=== PATIENT | female | born 1935 | race Asian ===

== ENCOUNTER 2020-10-31 08:28 | Day surgery (SDC) | payer OTHER ==
[~2020-10-31] VITALS: Ht 154.9 cm; Wt 38.1 kg
--- NOTE | 2020-10-31 09:09 | NUR ---
RD RECOMMENDATIONS: 1. JEVITY 1.2 4 CANS/DAY; 1 CAN IN MORNING, 1.5 CANS IN AFTERNOON AND 1.5 CANS IN EVENING -THIS WILL PROVIDE 944 ML OF VOLUME/DAY, 1140 KCAL/DAY AND 52 GM OF PROTEIN/DAY, MEETING ADEQUATE NUTRIENT NEEDS 2. FREE WATER FLUSH 100 ML BEFORE AND AFTER EVERY FEEDING -TOTAL OF 600 ML OF FREE WATER FLUSH PER DAY VIVIAN COX, RD
[2020-10-31] MEDS ORDERED: fentaNYL citrate 0.05 MG/ML VIAL ONE (11:08)
[2020-10-31] MEDS ORDERED: MIDAZOLAM 5 MG/5 ML VIAL ONE (11:08)
[2020-10-31] MEDS ORDERED: fentaNYL citrate 0.05 MG/ML VIAL IVP ONE (13:55)
[2020-10-31] MEDS ORDERED: MIDAZOLAM 2 MG/2 ML VIAL IVP ONE (13:55)
== END 2020-10-31 14:05 | disposition home or self-care (01) ==
LOC: MDS 08:28 → MFCC 08:30 → MDS 14:05
PROVIDERS: ATTEND Internal Medicine Gastroenterology
DX: R13.10 Dysphagia, unspecified (principal); K22.2 Esophageal obstruction; R62.7 Adult failure to thrive; Z79.899 Other long term (current) drug therapy
CPT/HCPCS: 43246; 43248; J0690; J2250; J3010; J7030; J7060

== ENCOUNTER 2020-11-12 11:18 | Emergency (ER) | payer OTHER ==
[~2020-11-12] VITALS: Ht 152.4 cm; Wt 44.5 kg
[2020-11-12 11:22] VITALS: BP 150/54
[2020-11-12] MEDS ORDERED: NACL 0.9% 1,000 ML IV SCH (11:25)
--- NOTE | 2020-11-12 11:30 | NUR ---
85 Y/O FEMALE BIBA FROM [facility] C/O ALOC, [facility]. BASELINE IS AT [facility] 14. ON NASAL CANNULA 2 LPM. O2 99 %. SACRAL REDNESS NOTED. LUNG SOUNDS CLEAR. WITHDRAWS TO PAIN. MEDHX: GTUBE, DEMENTIA, CVA, HTN, GERD, PSORIASIS NKA
--- NOTE | 2020-11-12 11:35 | NUR ---
UA, blood cultures and sample walked to lab and handed to CPT
--- NOTE | 2020-11-12 11:35 | NUR ---
EMT at bedside for EKG
--- NOTE | 2020-11-12 11:37 | NUR ---
PER ERMD 12 LEAD WAS DONE ON PT AND CAME BACK NSR AT 85 HR.
--- NOTE | 2020-11-12 11:45 | NUR ---
RAD at bedside
--- NOTE | 2020-11-12 11:49 | NUR ---
RT AT BEDSIDE
[2020-11-12] MEDS ORDERED: LISI-487 GT (12:12)
[2020-11-12] MEDS ORDERED: HYDR-1098 PO (12:12)
[2020-11-12] MEDS ORDERED: METO50TE2 GT (12:12)
[2020-11-12] MEDS ORDERED: ACET-2619 GT (12:12)
[2020-11-12] MEDS ORDERED: AMLO5TAB GT (12:12)
[2020-11-12] MEDS ORDERED: CLOT1CRE90 TP (12:12)
[2020-11-12] MEDS ORDERED: NUTR-813 PO (12:12)
[2020-11-12] MEDS ORDERED: CIPR500T4 GT (12:12)
[2020-11-12] MEDS ORDERED: ATI.5 GT (12:12)
[2020-11-12] MEDS ORDERED: PANT40GR GT (12:12)
[2020-11-12] MEDS ORDERED: ASPI-1749 GT (12:12)
[2020-11-12 12:15] LABS: BASOPHILS % (AUTO) 0.3 % (0.0-2.0); EOSINOPHILS # (AUTO) 0.2 K/uL (0-0.4); EOSINOPHILS % (AUTO) 1.9 % (0.0-4.0); HEMATOCRIT 35.7 % (36-48); HEMOGLOBIN 11.7 g/dL (12.0-16.0); LYMPHOCYTES # (AUTO) 1.6 K/uL (2.5-16.5); LYMPHOCYTES % (AUTO) 17.7 % (20.5-51.1); MEAN CORPUSCULAR HEMOGLOBIN 29 pg (27-31); MEAN CORPUSCULAR HGB CONC 33 g/dL (33-37); MEAN CORPUSCULAR VOLUME 87.2 fL (80-94); MONOCYTES # (AUTO) 0.8 K/uL (0.8-1.0); MONOCYTES % (AUTO) 8.3 % (1.7-9.3); NEUTROPHILS # (AUTO) 6.5 K/uL (1.8-7.7); NEUTROPHILS % (AUTO) 71.8 % (42.2-75.2); PLATELET COUNT (AUTO) 282 K/uL (140-450); RED BLOOD CELL COUNT(AUTO) 4.09 MIL/uL (4.20-5.40); RED CELL DISTRIBUTION WIDTH 13.5 % (11.6-13.7); WHITE BLOOD COUNT (AUTO) 9.1 K/uL (4.8-10.8)
--- NOTE | 2020-11-12 12:17 | NUR ---
SAMUEL SWAB COLLECTED AND SENT TO LAB WITH ISI MARQUEZ
--- NOTE | 2020-11-12 12:21 | NUR ---
CALLED [facility], SPOKE [facility] CHARGE NURSE. FULLY VACCINATED WITH MODERNA, NO DATES PROVIDED. COVID TESTED NEGATIVE ON 11/10/20. NO POLST PROVIDED.
--- NOTE | 2020-11-12 12:23 | NUR ---
CALLED MARISA DAUGHTER [phone] FOR POLST, NO ANSWER, LEFT MESSAGE.
[2020-11-12 12:29] LABS: ALBUMIN 2.7 g/dL (3.4-5.0); ANION GAP 10.8 (8-16); ASPARTATE AMINOTRANSFERASE 31 U/L (15-37); CARBON DIOXIDE 25.6 mmol/L (21-32); CHLORIDE 104 mmol/L (98-107); CREATININE 1.2 mg/dL (0.6-1.3); GLUCOSE 106 mg/dL (74-106); POTASSIUM 4.4 mmol/L (3.5-5.1); SODIUM SERUM 136 mmol/L (136-145); TOTAL BILIRUBIN 0.3 mg/dL (0.0-1.0); UREA NITROGEN, BLOOD 34 mg/dL (7-18)
--- NOTE | 2020-11-12 12:32 | NUR ---
BP 173/65 DR REYNAGA MADE AWARE, NO ORDERS GIVEN
[2020-11-12 12:36] LABS: APPEARANCE,URINE CLEAR (CLEAR); BILIRUBIN,URINE NEGATIVE (NEGATIVE); BLOOD, URINE 3+ (NEGATIVE); COLOR,URINE YELLOW (YELLOW); LEUKOCYTE ESTERASE ,URINE NEGATIVE (NEGATIVE); NITRITE, URINE NEGATIVE (NEGATIVE); PH,URINE 5.5 (5.0-9.0); UGLUCOSE NEGATIVE (NEGATIVE)
[2020-11-12 12:46] LABS: RBC,URINE 80-100 /HPF (0-5)
--- NOTE | 2020-11-12 13:25 | NUR ---
[facility] LA[facility] WELL TIME 11PM YESTERDAY. DR REYNAGA MADE AWARE
[2020-11-12] MEDS ORDERED: cefTRIAXone 1,000 MG VIAL ONE (13:42)
--- NOTE | 2020-11-12 13:48 | NUR ---
Colleen sandoval in [facility] - 11/12/20 at 1352 by [facility] PT TAKEN TO CT SCAN
--- NOTE | 2020-11-12 13:48 | NUR ---
PT TAKEN TO CT SCAN
--- NOTE | 2020-11-12 13:51 | NUR ---
Colleen sandoval in ED - 11/12/20 at [id number] [facility] [phone];S/[facility] [phone]
--- NOTE | 2020-11-12 14:00 | NUR ---
CALLED FACILITY, STATED PT'S LAST KNOWN WELL WAS [address] RYENAGA MADE AWARE.
--- NOTE | 2020-11-12 15:13 | NUR ---
PT'S DAUGTHER AT BEDSIDE
[2020-11-12 15:25] VITALS: BP 152/69
--- NOTE | 2020-11-12 15:25 | NUR ---
Patient to be transferred to [facility] ER. Is being transferred due to HIGHER LEVEL OF CARE. Receiving facility has accepting physician and available space. ER physician has signed transfer form. Patient or responsible alliance party has agreed to transfer and signed form. Patient belongings inventoried and will be sent with patient. Copy of nursing notes, lab reports, EKG, Physicians Orders and X-rays to be sent with patient. Report called to DAWOOD FLETCHER at receiving facility. [facility] ambulance service here for transfer[facility] ETA is 15 min to [facility].
== END 2020-11-12 15:25 | disposition short-term general hospital (02) ==
LOC: MED 11:18
DX: G46.4 Cerebellar stroke syndrome (principal); R41.82 Altered mental status, unspecified; N39.0 Urinary tract infection, site not specified; L89.101 Pressure ulcer of unspecified part of back, stage 1; Z20.822 Contact with and (suspected) exposure to COVID-19; F03.90 Unspecified dementia, unspecified severity, without behavioral disturbance, psychotic disturbance, mood disturbance, and anxiety; Z86.73 Personal history of transient ischemic attack (TIA), and cerebral infarction without residual deficits; Z79.899 Other long term (current) drug therapy; Z79.1 Long term (current) use of non-steroidal anti-inflammatories (NSAID); Z79.82 Long term (current) use of aspirin
CPT/HCPCS: 36415; 36600; 70450; 70496; 70498; 71045; 80053; 81001; 82550; 82553; 82803; 83605; 83880; 84484; 85025; 87040; 87086; 87426; 93005; 96361; 96365; 99291; J0696; J7030; Q0092; Q9967